=== PATIENT | female | born 2000 | race Caucasian/White ===

== ENCOUNTER 2022-12-27 19:33 | Emergency (ER) | payer OTHER, SELFPAY ==
[2022-12-27 19:48] VITALS: BP 118/77; PULSE 108; TEMP 36.9; O2SAT 97; BMI 30.7
[2022-12-27 20:18] LABS: Appearance Urine Cloudy (Clear); Bilirubin Urine Negative (Negative); Blood Urine 3+ (Negative); Color Urine Yellow (Yellow); Glucose Urine Negative (Negative); Ketones Urine Trace (Negative); Leukocyte Esterase Urine 3+ (Negative); Nitrite Urine Positive (Negative); Protein Urine 2+ (Negative); Specific Gravity Urine 1.025 (1.000-1.030); pH Urine 6.5 (5.0-8.5)
--- NOTE | 2022-12-27 20:30 | ED.GENADULT ---
HPI - General Adult General Chief complaint: Urogenital Problems, Female Stated complaint: Needs UTI test Time Seen by Provider: 12/27/22 19:38 History of Present Illness HPI narrative: This 22-year-old female comes in reporting dysuria symptoms that began last night. She states that she has some discomfort with voiding, increased frequency, sense of incomplete emptying. She has had symptoms like this in the past because of urinary tract infection. She does not report any fevers. Related Data Allergies Allergy/AdvReac Type Severity Reaction Status Date / Time No Known Drug Allergies Allergy Verified 12/27/22 19:48 Review of Systems Status of ROS: Reports: 10 or more systems reviewed and unremarkable except as noted in History and below Narrative: Constitutional: No fevers, no weight gain or loss. Eyes: No discharge. No vision changes. HENT: No congestion, no sore throat, no ear pain. Cardiovascular: No chest pain, no palpitations. Respiratory: No shortness of breath, no wheezes, no cough. Gastrointestinal: No vomiting, no diarrhea. Genitourinary: No hematuria. Dysuria symptoms as described above. Musculoskeletal: Normal range of motion. Skin: No rashes, no pruritis. Neurological: No dizziness, weakness, sensory change, speech change. Endo/Heme/Allergies: No bruising or bleeding. No polydipsia. Pysch: no suicidality, no anxiety, no insomnia. All other systems reviewed and are negative. PFSH PFSH Social History Smoking Status: Never smoker Do you use any of these nicotine containing products: None Second hand tobacco smoke exposure: No How often do you have a drink containing alcohol: never How often do you have six or more drinks on one occasion: Never AUDIT-C Alcohol total score: 0 Non-prescribed substance use: denies use service: No Exam Narrative: Exam Narrative: Constitutional: Well-developed, well-nourished, no acute distress. HEENT: Normocephalic, atraumatic. Neck: Normal range of motion. Nontender. Supple. Heart: Intact distal pulses. Lungs: No chest discomfort. No wheezes, rhonchi, or rales. Abdomen: Nontender. Back: Normal range of motion. Extremities: Normal range of motion. No injury. Skin: Intact. No rash. Warm. No erythema or pallor. Neurologic: No altered sensation. No weakness. Alert and oriented. Psychiatric: No suicidality. No anxiety or depression. No insomnia. Nursing notes and vitals signs are reviewed. Const: Vital Signs, click to edit/add: Vital Signs - 24 hr 12/27/22 19:48 Temperature 98.4 F Pulse Rate [Pulse Oximeter] 108 H Blood Pressure [Ri ght Upper Arm] 118/77 Pulse Oximetry 97 Oxygen Delivery Me thod Room Air Course Vital Signs Vital signs: Initial Vital Signs Temperature 98.4 F 12/27/22 19:48 Temperature Source Temporal Artery Scan 12/27/22 19:48 Pulse Rate 108 H 12/27/22 19:48 Pulse Rhythm Regular 12/27/22 19:48 Blood Pressure 118/77 12/27/22 19:48 Blood Pressure Mean 90 12/27/22 19:48 Blood Pressure Position Sitting 12/27/22 19:48 Pulse Oximetry 97 12/27/22 19:48 Oxygen Delivery Method Room Air 12/27/22 19:48 Vital Signs Temperature 98.4 F 12/27/22 19:48 Pulse Rate 108 H 12/27/22 19:48 Blood Pressure 118/77 12/27/22 19:48 Pulse Oximetry 97 12/27/22 19:48 Oxygen Delivery Method Room Air 12/27/22 19:48 Temperature 98.4 F 12/27/22 19:48 Pulse Rate 108 H 12/27/22 19:48 Blood Pressure 118/77 12/27/22 19:48 Pulse Oximetry 97 12/27/22 19:48 Oxygen Delivery Method Room Air 12/27/22 19:48 Medical Decision Making MDM Narrative Medical decision making narrative: This patient comes in with symptoms of dysuria suspicious for urinary tract infection. Urinalysis does confirm this suspicion. Patient is otherwise is uncomplicated. She received a prescription for Keflex. Lab Data Labs: Lab Results 12/27/22 Range/Units 19:58 Urine Color Yellow (Yellow) Urine Appearance Cloudy A (Clear) Urine pH 6.5 (5.0-8.5) Ur Specific Lillian 1.025 (1.000-1.030) Urine Protein 2+ A (Negative) Urine Glucose (UA) Negative (Negative) Urine Ketones Trace A (Negative) Urine Blood 3+ A (Negative) Urine Nitrite Positive A (Negative) Urine Bilirubin Negative (Negative) Urine Urobilinogen 1.0 (0.2-1.0) Ur Leukocyte Esterase 3+ A (Negative) Urine RBC 25-50 A (0-2) Urine WBC >100 A (0-5) Ur Squamous Epith Cells Few (None-Few) Urine Bacteria Moderate A (None) Discharge Plan Discharge Clinical Impression: Urinary tract infection Patient Disposition: Home, Self-Care Condition: Unchanged Additional Instructions: Take medication as prescribed. Follow up with MD or return if worsening. Stand Alone Forms: [employer] Info Instructions
[2022-12-27 20:56] LABS: Bacteria Urine Moderate; RBC Urine 25-50 (0-2); Squamous Epithelial Cell Urine Few (None-Few); WBC Urine >100 (0-5)
== END 2022-12-27 21:13 | disposition home or self-care (01) ==
LOC: ED 21:14
PROVIDERS: Emergency Provider Emergency Medicine Emergency Medical Services
DX: N39.0 Urinary tract infection, site not specified (principal)
CPT/HCPCS: 81001; 87086; 87186; 99283; 99284